=== PATIENT | male | born 1935 | race Caucasian/White ===

== ENCOUNTER 2019-02-08 14:28 | Emergency (ER) | payer BC, MEDICARE ==
[~2019-02-08] VITALS: Ht 182.9 cm; Wt 68.2 kg
[2019-02-08 14:30] VITALS: BP 102/57; Ht 182.9 cm; Wt 68.2 kg
[2019-02-08] MEDS ORDERED: ZYLOPRIM300 MG PO (14:32)
[2019-02-08] MEDS ORDERED: NORVASC5 MG PO (14:33)
[2019-02-08] MEDS ORDERED: MIRAPEX0.5 MG PO (14:34)
[2019-02-08] MEDS ORDERED: SINEMET 25-1001 EAC1 PO (14:34)
[2019-02-08] MEDS ORDERED: LISINOPRIL20 MG PO (14:34)
[2019-02-08] MEDS ORDERED: NEXIUM20 MG PO (14:35)
[2019-02-08] MEDS ORDERED: ASPIRIN81 MG PO (14:35)
[2019-02-08] MEDS ORDERED: EXELON 13.3 M13.3 MG TRANSDERM (14:35)
== END 2019-02-08 18:08 | disposition home or self-care (01) ==
LOC: D.ER 14:28
DX: R07.81 Pleurodynia (principal); W19.XXXA Unspecified fall, initial encounter